=== PATIENT | male | born 1975 | race Caucasian/White ===

== ENCOUNTER 2023-09-02 07:09 | Emergency (ER) | payer OTHER, SELFPAY ==
[2023-09-02 07:13] VITALS: BP 152/63; PULSE 67; RESP 24; TEMP 35.7; O2SAT 96; BMI 24.1
--- NOTE | 2023-09-02 07:37 | ED_ITS ---
HPI - General Adult General Chief complaint: Flank Pain Stated complaint: kidney stone Time Seen by Provider: 09/02/23 07:30 Source: patient Mode of arrival: ambulatory Limitations: no limitations History of Present Illness HPI narrative: 48-year-old male presents to the emergency department with a 2 day history of initially painless hematuria that progressed to right flank pain overnight accompanied by vomiting x1 this morning. History of prior kidney stones including ones that have required lithotripsy and ureteral stent placement as well. No fever, no trauma or injury. Pain is located at the right mid flank area radiating down to the right inguinal area. No left-sided symptoms. Vomiting is really only with the crampy pain, there is no nausea in between. No stool changes, no fever. Has not tried any interventions at home prior to coming to the ED. Last stone has been several years ago. States that his past medical history is fairly benign except for multiple prior kidney stones. No major long-term health problems. No long-term prescription medications. Allergy to Augmentin causing a rash. Nonsmoker. ROS notable for the flank pain and urinary symptoms as described above, otherwise denies times 12 systems. Related Data Previous Rx's ?Medication ?Instructions ?Recorded hydrocodone 5 mg-acetaminophen 325 1 tab PO Q6H PRN pain #12 tabs 09/02/23 mg tablet ketorolac 10 mg tablet 10 mg PO Q6H PRN pain 5 days #20 09/02/23 tabs tamsulosin 0.4 mg capsule (Flomax) 0.4 mg PO DAILY #30 caps 09/02/23 Allergies Allergy/AdvReac Type Severity Reaction Status Date / Time amoxicillin [From Augmentin] Allergy Mild rash Verified 09/02/23 07:17 clavulanic acid Allergy Mild rash Verified 09/02/23 07:17 [From Augmentin] PFSH PFS Social History Non-prescribed substance use: denies use Exam Const: Vital Signs, click to edit/add: Vital Signs - 24 hr 09/02/23 07:13 Temperature 96.2 F L Pulse Rate [Pulse Oximeter] 67 Respiratory Rate 24 Blood Pressure [Ri ght Upper Arm] 152/63 H Pulse Oximetry 96 Oxygen Delivery Me thod Room Air Documenting provider has reviewed patient's vital signs: yes General appearance: well kempt Other: Appears quite uncomfortable but is very cooperative. Appears well-nourished well-hydrated, no impairment. HENMT: Common normals: normocephalic and oropharynx normal Head and scalp: normocephalic Eye: Common normals: conjunctivae normal General eye: normal appearance of both eyes Conjunctiva: conjunctiva(e) normal Neck & C-Spine: General: normal visual inspection Resp: Common normals: normal respiratory effort, no use of accessory muscles and clear to auscultation bilaterally Effort & inspection: able to speak in complete sentences Auscultation: clear to auscultation bilaterally Cardio: Common normals: regular rate, regular rhythm, S1 normal heart sound, S2 normal heart sound and no murmurs Rate: regular rate Rhythm: regular rhythm Heart sounds: S1 normal and S2 normal GI: Common normals: Normal to inspection, nondistended, normoactive bowel sounds present, soft to palpation, non-tender, no hepatosplenomegaly and no masses Palpation: soft and no hepatosplenomegaly : Other: Right lower pole CVA tenderness noted. Extremity: Common normals: normal to inspection and normal capillary refill Psych: Appearance: well kempt Attitude: engaged Insight: insight good Judgement: judgment good Skin: Common normals: no rashes or lesions noted General skin exam: no rashes or lesions noted Course Course ED Course: Right flank pain with multiple prior kidney stones presenting with symptoms suspicious for recurrent nephro/ureterolithiasis. Will give Toradol and Zofran, typical labs, urinalysis and CT of the abdomen and pelvis without contrast. Will give 0.5 mg of Dilaudid if the Toradol is ineffective. Will hand over care to incoming day shift partner. Await findings. Reevaluation(s) Time of Reevaluation #1: 08:32 Reevaluation #1: Patient counseled on findings, 6 x 8 mm stone with hydronephrosis. Will need urology follow-up. They are not yet open for us to call to secure an appointment. He was counseled on this. Remainder of labs appear grossly unremarkable. Will be given Flomax to help with ureteral spasm and discharged with Toradol and [place] as well as more Flomax. He will call today for an appointment with Urology this week. Counseled on drinking plenty of fluids, off work today, fevers, other alarm symptoms reviewed that would warrant repeat ED presentation. He is familiar with a kidney stone process, possible need for stent and other procedure any verbalizes understanding of this. Vital Signs Vital signs: Initial Vital Signs Temperature 96.2 F L 09/02/23 07:13 Temperature Source Temporal Artery Scan 09/02/23 07:13 Pulse Rate 67 09/02/23 07:13 Respiratory Rate 24 09/02/23 07:13 Blood Pressure 152/63 H 09/02/23 07:13 Blood Pressure Mean 92 09/02/23 07:13 Pulse Oximetry 96 09/02/23 07:13 Oxygen Delivery Method Room Air 09/02/23 07:13 Vital Signs Temperature 96.2 F L 09/02/23 07:13 Pulse Rate 67 09/02/23 07:13 Respiratory Rate 24 09/02/23 07:13 Blood Pressure 152/63 H 09/02/23 07:13 Pulse Oximetry 96 09/02/23 07:13 Oxygen Delivery Method Room Air 09/02/23 07:13 Temperature 96.2 F L 09/02/23 07:13 Pulse Rate 67 09/02/23 07:13 Respiratory Rate 24 09/02/23 07:13 Blood Pressure 152/63 H 09/02/23 07:13 Pulse Oximetry 96 09/02/23 07:13 Oxygen Delivery Method Room Air 09/02/23 07:13 Medications Administered Medications: Discontinued Medications Generic Name Dose Route Start Last Admin Trade Name Freq PRN Reason Stop Dose Admin Hydromorphone HCl 0.5 mg 09/02/23 07:43 09/02/23 07:53 Hydromorphone 0.5 Mg/0.5 Ml Inj IVP 09/02/23 07:44 0.5 mg ONCE ONE Administration Ketorolac Tromethamine 30 mg 09/02/23 07:30 09/02/23 07:38 Ketorolac 30 Mg/Ml Inj IVP 09/02/23 07:31 30 mg ONCE ONE Administration Ondansetron HCl 4 mg 09/02/23 07:30 09/02/23 07:38 Ondansetron 2 Mg/Ml Inj IVP 09/02/23 07:31 4 mg ONCE ONE Administration Medical Decision Making Lab Data Lab results reviewed: Yes I reviewed the patient's lab results Lab results narrative: Labs reassuring Labs: Lab Results 09/02/23 Range/Units 07:22 WBC 9.14 (4.50-11.00) K/uL RBC 4.80 (4.30-5.90) m/uL Hgb 14.4 (13.5-17.5) gm/dL Hct 43.3 (37.0-53.0) % MCV 90 (80-100) fL MCH 30 (26-34) pg MCHC 33 (32-36) gm/dL RDW Coeff of Riya 12.5 (11.5-15.5) % Plt Count 275 (140-440) K/uL Neut % (Auto) 82.2 H (42.0-72.0) % Lymph % (Auto) 9.5 L (20-44) % [place] % (Auto) 5.7 (0.0-11.0) % Eos % (Auto) 2.0 (0.0-7.0) % Baso % (Auto) 0.5 (0.0-3.0) % Neut # (Auto) 7.50 H (1.7-7.0) K/uL Lymph # (Auto) 0.90 (0.90-2.90) K/uL [place] # (Auto) 0.50 (0.00-0.90) K/UL Eos # (Auto) 0.18 (0.00-0.50) K/uL Baso # (Auto) 0.05 (0.00-0.30) K/uL Abs Immat Gran (auto) 0.01 (0.00-0.30) K/uL Imm/Tot Granulo (auto) 0.1 % Sodium 137 (135-149) mmol/L Potassium 3.8 (3.6-5.1) mmol/L Chloride 108 (96-114) mmol/L Carbon Dioxide 19 L (20-32) mmol/L Anion Gap 10 (7-15) mEq/L BUN 21 (7-30) mg/dL Creatinine 1.0 (0.5-1.5) mg/dL Estimated Creat Clear 91.25 Estimated GFR 92 ml/min Glucose 138 H (60-115) mg/dL Calcium 9.5 (8.4-10.6) mg/dL C-Reactive Protein < 0.5 L (0.5-1.0) mg/dL Imaging Data CT scan - abdomen: Attestation: I have reviewed the pertinent imaging results. My impression: 6 x 8 ureteral stone in the right mid ureter with moderate hydronephrosis. Lots of tiny kidney stones as well, no others appear to be large or obstructing Radiologist's impression: 1. 8 mm obstructing proximal right ureteral stone with associated moderate upstream right hydroureteronephrosis. Discharge Plan Discharge Clinical Impression: Calculus of right ureter Patient Disposition: Home w/ Parent or Adult Instructions: Ureteral Stones (ED) Additional Instructions: As we discussed, your kidney stone may be too large for you to pass on your own. Because of this, you will need to follow up with Urology. The office is not yet open for me to call and make this appointment for you. Their number is [phone]. Please call them and relayed the information below: You have a 6 x 8 mm stone in the right mid ureter with significant hydronephrosis. There are no signs of infection or complication. He should be seen this week for evaluation. IF they are unable to get you an appointment, try [facility] (Dr. Garrett) at [phone] Otherwise, for pain, I recommend Toradol 10 mg by mouth every 6 hours. You may also use Tylenol 1000 mg every 6 hours as needed as well. I have given you a small supply of [place], a narcotic pain medicine if needed also. Try to use these sparingly and wean off of them as soon as possible. I also find medication called Flomax helpful. We use this for enlarged prostate but it also helps dilate open the ureter slightly and I find that it reduces the pain from spasm. Take this once daily. You can discontinue all of these medications once the you pass the stone. I would recommend that you drink plenty of fluids and strain your urine. If you start running high fevers or have severe uncontrolled pain, you should come back to the emergency department. Activity Level: Activity as Tolerated Discharge Diet: Regular Prescriptions: New tamsulosin [Flomax] 0.4 mg capsule 0.4 mg PO DAILY Qty: 30 0RF Rx Instructions: to help stone pass and reduce spasm. stop if stone passed. ketorolac 10 mg tablet 10 mg PO Q6H PRN (Reason: pain) 5 Days Qty: 20 0RF hydrocodone-acetaminophen 5-325 mg tablet 1 tab PO Q6H PRN (Reason: pain) Qty: 12 0RF Follow Up/Referrals: Chacorta Grewal MD [Referring] - 2 Days (First available urology within 5 days, please. 8mm stone) Provider,Not a Local [Primary Care Provider] - Stand Alone Forms: My[facility] Info Instructions
--- NOTE | 2023-09-02 07:37 | CRLHL7_ITS ---
For Patients: As a result of the 21st Century Cures Act, medical imaging exams and procedure reports are released immediately into your electronic medical record. You may view this report before your referring provider. If you have questions, please contact your health care provider. INDICATION: Right flank pain. COMPARISON: None available. TECHNIQUE: CT of the abdomen and pelvis without intravenous contrast. Please note that all CT scans at this facility use dose modulation, iterative reconstruction, and/or weight-based dosing when appropriate to reduce radiation dose to as low as reasonably achievable. FINDINGS: The study is performed without intravenous contrast. This limits the sensitivity of the exam for the detection bowel pathology, focal lesions of the abdominopelvic viscera and vascular pathology including significant vascular stenosis, occlusion and dissection. ABDOMEN Liver: Normal hepatic attenuation. No suspicious focal hepatic lesion. No intrahepatic biliary ductal dilatation. Gallbladder: Normal gallbladder size. Normal common duct caliber. No pericholecystic inflammatory changes. Pancreas: Normal pancreatic attenuation. No focal lesion. Normal duct caliber. No peripancreatic inflammatory changes. Spleen: Normal splenic attenuation. No suspicious focal lesion. Adrenal Glands: Symmetrical adrenal glands. No focal lesion of significance. Kidneys: 8 mm (series 3; image 59) obstructing proximal right ureteral stone with associated moderate upstream right hydroureteronephrosis. Punctate nonobstructing right intrarenal collecting system nephrolith (2; 73). Clustered punctate nonobstructing left lower pole nephrolith (2; 71 and 3; 84-86). Gastrointestinal tract: Normal caliber, attenuation and wall thickness of the gastrointestinal tract. No inflammatory changes. Normal mesentery. Normal appendix. Vascular: Normal outer wall to outer wall abdominal aortic caliber. Patency and luminal caliber of the abdominopelvic arterial and venous vasculature cannot be assessed on this noncontrast study. Additional findings: No incidental adenopathy. No significant ascites, free fluid or pneumoperitoneum. PELVIS No bladder lesion is identified. No significant incidental findings related to the prostate and seminal vesicles. No abnormal free fluid. No incidental adenopathy. SKELETON AND BODY WALL No acute or suspicious incidental findings. Small umbilical fat containing hernia. LOWER THORAX Partially included lower thoracic wall, lungs, pleural spaces and mediastinum are otherwise without significant incidental findings. IMPRESSION: 1. 8 mm obstructing proximal right ureteral stone with associated moderate upstream right hydroureteronephrosis. 2. Bilateral punctate nonobstructing intrarenal collecting system nephroliths. Please note that all CT scans at this facility use dose modulation, iterative reconstruction, and/or weight-based dosing when appropriate to reduce radiation dose to as low as reasonably achievable. Dictated by Esteban Mahajan MD @ 09/02/2023 8:15:30 AM (Electronically Signed)
[2023-09-02] MEDS: KETOROLAC 30 MG/ML inj IVP (07:38)
[2023-09-02] MEDS: ONDANSETRON 2 MG/ML inj 4 MG IVP (07:38)
[2023-09-02 07:45] LABS: Basophils Absolute Auto 0.05 K/uL (0.00-0.30); Basophils Percent Auto 0.5 % (0.0-3.0); Eosinophils Absolute Auto 0.18 K/uL (0.00-0.50); Hematocrit 43.3 % (37.0-53.0); Hemoglobin* 14.4 gm/dL (13.5-17.5); Immature Granulocytes Abs Auto 0.01 K/uL (0.00-0.30); Immature Granulocytes Pct Auto 0.1 %; Lymphocytes Percent Auto 9.5 % (20-44); Mean Corpuscular HGB Conc 33 gm/dL (32-36); Mean Corpuscular Hemoglobin 30 pg (26-34); Mean Corpuscular Volume 90 fL (80-100); Monocytes Percent Auto 5.7 % (0.0-11.0); Neutrophils Percent Auto 82.2 % (42.0-72.0); Platelet Count* 275 K/uL (140-440); RDW Coefficient of Variation % 12.5 % (11.5-15.5); White Blood Count* 9.14 K/uL (4.50-11.00)
[2023-09-02 07:49] LABS: Slide Review Reflex No
[2023-09-02] MEDS: HYDROmorphone 0.5 mg/0.5 ml inj IVP (07:53)
[2023-09-02 07:57] LABS: Chloride* 108 mmol/L (96-114); Potassium* 3.8 mmol/L (3.6-5.1); Sodium* 137 mmol/L (135-149)
[2023-09-02 08:00] LABS: Est. Creatinine Clearance* 91.25; Estimated Glomerular Filt Rate 92 ml/min
[2023-09-02 08:01] LABS: Anion Gap 10 mEq/L (7-15); Blood Urea Nitrogen* 21 mg/dL (7-30); Calcium* 9.5 mg/dL (8.4-10.6); Carbon Dioxide* 19 mmol/L (20-32); Glucose* 138 mg/dL (60-115)
[2023-09-02 08:11] VITALS: PULSE 96; RESP 18; O2SAT 98
[2023-09-02 08:16] LABS: C Reactive Protein* < 0.5 mg/dL (0.5-1.0)
[2023-09-02 08:41] LABS: Appearance Urine Clear (Clear); Bilirubin Urine Negative (Negative); Blood Urine 3+ (Negative); Color Urine Yellow (Yellow); Glucose Urine Negative (Negative); Ketones Urine Negative (Negative); Leukocyte Esterase Urine Negative (Negative); Nitrite Urine Negative (Negative); Protein Urine Negative (Negative); Urobilinogen Urine 0.2 (0.2-1.0); pH Urine 6.5 (5.0-8.5)
[2023-09-02 09:03] LABS: RBC Urine 25-50 (0-2); WBC Urine 0-2 (0-5)
== END 2023-09-02 09:05 | disposition home or self-care (01) ==
PROVIDERS: Emergency Provider Family Medicine
DX: N20.1 Calculus of ureter (principal)
CPT/HCPCS: 36415; 74176; 80048; 81001; 81003; 85025; 86140; 96374; 96375; 99284; J1170; J1885; J2405